=== PATIENT | female | born 1985 | race Two or more races ===

== ENCOUNTER 2024-08-26 14:06 | Emergency (ER) | payer MEDICAID, SELFPAY ==
[2024-08-26 14:17] VITALS: BP 130/80; PULSE 68; RESP 18; TEMP 36.6; O2SAT 99; BMI 29.8
--- NOTE | 2024-08-26 14:22 | XR_ITS ---
Examination: OB Transvaginal ultrasound of the pelvis, complete Technique: Transvaginal sonographic images pelvis performed using casillas scale imaging Exam date and time: August 26, 2024 1445 hours INDICATIONS: Onset vaginal bleeding today FINDINGS: Uterus 9.8 x 6.2 x 6.8 cm Anterior uterine body mass 8 x 7 x 8 mm Intrauterine gestational sac 1.1 cm corresponds to 5 weeks 6 days gestational age No pole No cardiac activity Right ovary 3.3 x 2.6 cm arterial flow Left ovary 3.2 x 3.2 cm arterial flow IMPRESSION: Empty intrauterine gestational sac corresponding to 5 week 6 day gestational age. No cardiac activity, no pole, recommend short-term follow-up transvaginal pelvic sonography to document viability
[2024-08-26 15:30] LABS: Basophils # (Auto) 0.1 Thou/mm3 (0.0-0.2); Basophils % (Auto) 1 % (0-2.5); Eosinophils # (Auto) 0.1 Thou/mm3 (0.0-0.5); Eosinophils % (Auto) 1 % (0-10); Hematocrit 40.5 % (36.0-46.0); Hemoglobin 13.7 g/dL (12.0-16.0); Immature Granulocytes % (Auto) 1 % (0-0); Immature Granulocytes Auto 0.07 Thou/mm3 (0.00-0.00); Lymphocytes # (Auto) 3.9 Thou/mm3 (1.0-4.8); Lymphocytes % (Auto) 32 % (10-50); Mean Corpuscular HGB Conc 33.8 g/dl (31.0-37.0); Mean Corpuscular Hemoglobin 29.8 pg (25.0-35.0); Mean Corpuscular Volume 88 fL (80-100); Monocytes # (Auto) 0.6 Thou/mm3 (0.0-0.8); Monocytes % (Auto) 5 % (0-12); Neutrophils # (Auto) 7.4 Thou/mm3 (1.8-7.7); Neutrophils % (Auto) 61 % (37-80); Nucleated Red Blood Cell % 0 /100 WBC (0); Platelet Count 366 Thou/mm3 (140-440); RDW Standard Deviation 43.2 fL (36.4-46.3); White Blood Count 12.2 Thou/mm3 (3.6-11.0)
[2024-08-26 15:55] LABS: Alanine Aminotransferase 38 U/L (10-49); Albumin, Serum 4.9 gm/dL (3.5-5.0); Albumin/Globulin Ratio 1.6 (1.2-2.2); Alkaline Phosphatase 108 U/L (46-116); Anion Gap 10 (7-16); Aspartate Amino Transferase 25 U/L (0-34); BUN/Creatinine Ratio 16 Ratio (12-20); Bilirubin,Total 0.3 mg/dL (0.3-1.2); Blood Urea Nitrogen 13 mg/dL (9-23); Calcium 9.7 mg/dL (8.3-10.6); Calcium (Corrected) 9.7 mg/dL (8.5-10.1); Carbon Dioxide 24.3 mMol/L (20.0-31.0); Chloride 100 mMol/L (98-107); Creatinine (Component) 0.8 mg/dL (0.6-1.3); Estimated Creatinine Clearance 103.1 mL/min (>60); Globulin 3.1 gm/dL (2.3-3.5); Glucose 100 mg/dL (74-106); Osmolality,Calculated 268 (275-295); Potassium 3.7 mMol/L (3.4-5.1); Sodium 134 mMol/L (136-145); eGFR > 60 See Note
[2024-08-26 16:25] LABS: Beta HCG,Quantitative 5832 mIU/mL (<5.0)
--- NOTE | 2024-08-26 16:40 | EDNOTE_ITS ---
ED OB Contraction Preg RMI/HPI General Chief complaint: Vaginal Bleeding Stated complaint: VAGINAL BLEEDING X3 HOURS / 7 WEEKS IUP Time Seen by Provider: 08/26/24 14:12 Arrival date/time: 08/26/24 14:06 39-year-old female approximately 7 weeks presents to the emergency department today with complaints of vaginal bleeding x 3 hours patient reports no fever nausea or vomiting no headache dizziness or weakness Limitations: no limitations Related Data Previous Rx's ?Medication ?Instructions ?Recorded Hydrocodone/Acetaminophen * (NORCO 1 tab PO Q4H PRN PAIN #20 tabs 08/03/ 5/325 *) Allergies Allergy/AdvReac Type Severity Reaction Status Date / Time NKA* Allergy Uncoded 08/26/24 14:06 Review of Systems Review of Systems Systems Reviewed: All systems reviewed, normal except as documented Constitutional Constitutional: Reports system reviewed and no additional complaints, except as documented, Denies fever(s) and Denies headache(s) Eyes Eyes: Reports system reviewed and no additional complaints, except as documented and Denies blurry vision ENT Ears, Nose, Mouth, and Throat: Reports system reviewed and no additional complaints, except as documented, Denies headache(s), Denies nasal congestion and Denies nasal discharge Cardiovascular Cardiovascular: Reports system reviewed and no additional complaints, except as documented, Denies chest pain and Denies dyspnea Respiratory Respiratory: Reports system reviewed and no additional complaints, except as documented, Denies chest congestion, Denies cough and Denies dyspnea Gastrointestinal Gastrointestinal: Reports system reviewed and no additional complaints, except as documented and Denies abdominal pain Genitourinary Genitourinary: Reports system reviewed and no additional complaints, except as documented and Reports abnormal vaginal bleeding Integumentary/Breasts Skin/Breast: Reports system reviewed and no additional complaints, except as documented and Denies rash Neurologic Neurologic: Reports system reviewed and no additional complaints, except as documented, Reports as per HPI and Denies headache(s) Past Medical History Past Medical History NEUROLOGIC: Negative Neurological Disorders CARDIAC: Negative Cardiac Disorders Social History SMOKING STATUS: Never smoker ED Exam General Limitations: Present no limitations General appearance: Present alert and in no apparent distress Head Head exam: Present atraumatic Eye Eye exam: Present normal appearance, PERRL and EOMI ENT ENT exam: Present normal exam, normal oropharynx and mucous membranes moist Neck Neck exam: Present normal inspection, full ROM and trachea midline Chest Chest inspection: Present normal inspection and symmetric chest wall rise Respiratory Respiratory exam: Present normal lung sounds bilaterally Cardiovascular Cardiovascular exam: Present regular rate, normal rhythm and normal heart sounds Abdominal Exam Abdominal exam: Present soft and normal bowel sounds; Absent distention, tenderness, guarding, rebound or rigidity Extremities Exam Extremities exam: Present normal inspection and full ROM Back Exam Back exam: Present normal inspection and full ROM Neurological Exam Neurological exam: Present alert, oriented X3 and CN II-XII intact Psychiatric Psychiatric exam: Present normal affect and normal mood Skin Skin exam: Present warm, dry, intact and normal color Course Quality Measures none Orders Category Date Time Status US OB transvaginal Stat Exams 08/26/24 14:22 Completed ABO/RH Type Stat Lab 08/26/24 15:19 Completed Beta HCG,Quantitative Stat Lab 08/26/24 15:19 Completed CBC Stat Lab 08/26/24 15:19 Completed Comprehensive Metabolic Panel Stat Lab 08/26/24 15:19 Completed Vital Signs Vital signs: Vital Signs Temperature 98 F 08/26/24 14:17 Pulse Rate 68 08/26/24 14:17 Respiratory Rate 18 08/26/24 14:17 Blood Pressure 130/80 08/26/24 14:17 Pulse Oximetry (%) 99 08/26/24 14:17 Oxygen Delivery Method Room Air 08/26/24 14:17 O2 saturation 99% room air within normal limits Vaginal Bleeding MDM Narrative MDM Narrative: 39-year-old female approximately 7 weeks presents to the emergency department today with complaints of vaginal bleeding x 3 hours patient reports no fever nausea or vomiting no headache dizziness or weakness On exam patient well-appearing patient hemodynamically stable in no acute distress Lab work as well as ultrasound obtained Ultrasound is not very reassuring at this time I explained to the patient she has to have repeat lab work and ultrasound in the next week for further evaluation Patient discharged home in no distress to follow-up with [employer] in the next 24 to 48 hours and for any worsening symptoms to return to the ER immediately Patient data External records reviewed:: [facility] previous records Clinical information provided by:: patient Social determinants that could affect healthcare access:: none Patient has the following chronic illnesses:: None How is presenting disease/condition affected by chronic disease/condition?: no chronic disease Evaluation data The following diagnostics were reviewed and interpreted by me:: lab results and radiology exam(s) Lab and/or radiology exams considered but not ordered:: Labs and radiology obtained Interpretation Summary: Reviewed by me Medications / Prescriptions Medications or Prescriptions considered but not ordered:: Given no meds Medication administrations:: Given no meds Consultations Consultation(s) initiated? (list below): No Diagnosis Vaginal Bleeding Differential Diagnosis: missed and threatened Most likely diagnosis given after review of the tests above:: Threatened Admission Indicated Admission indicated?: not indicated Admission Request Was there a request for admission?: No Disposition Plan Disposition Plan: Discharge Discharge Attestation Discharge Attestation: The patient and all family members were given an opportunity to ask questions and understood the discharge instructions. Discharge instructions specifically effects, indications for sooner follow up or return to the emergency department, and the expected course of current diagnosis. Patient condition: Stable Discharge Plan Plan Patient Disposition: HOME (Self Care) Disposition Comment: Stable Prescriptions/Referrals Prescriptions/Med Rec: No Action Hydrocodone/Acetaminophen * (NORCO 5/325 *) 1 TAB tablet 1 tab PO Q4H PRN (Reason: PAIN) Qty: 20 0RF Referrals: Zulay Uribe MD [Primary Care Provider] - 08/29/24 Problem List Clinical Impression: Threatened Patient/Caregiver Discharge Instructions Education Materials: ED Possible Miscarriage ... Additional Instructions: Please have repeat lab work and ultrasound next week for worsening symptoms return immediately Print Language: Greenlandic Stand Alone Forms: Kim Award Info., Patient Portal Info Letter PA/BOLIVAR Supervising Physician RICKIE/BOLIVAR Supervising Physician: Dr. Marquez
== END 2024-08-26 16:50 | disposition home or self-care (01) ==
PROVIDERS: Nurse Practitioner Primary Care; Emergency Provider Emergency Medicine; PCP Family Medicine
DX: O20.0 Threatened abortion (principal); Z3A.01 Less than 8 weeks gestation of pregnancy
CPT/HCPCS: 36415; 76817; 80053; 84702; 85025; 86900; 86901; 99284